=== PATIENT | female | born 1990 | race Caucasian/White ===

== ENCOUNTER 2018-01-15 21:11 | Emergency (ER) | payer OTHER ==
[~2018-01-15] VITALS: Ht 157.5 cm; Wt 55.3 kg
[~2018-01-15 21:11] MED LIST: FLV1 PO; LEVE1TAB57 PO; ZLF/50 PO
[2018-01-15 21:17] VITALS: TEMP 36.5; Ht 157.5 cm; Wt 55.3 kg
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
[2018-01-15] MEDS ORDERED: IBUPROFEN 600 MG TAB PO STA (21:40)
[2018-01-15] MEDS ORDERED: ACETAMINOPHEN 500 MG TAB PO STA (21:40)
[2018-01-15] MEDS ORDERED: COUGH DROP (SUGAR FREE) LOZ 24 LOZ/1 BOX LOZ STA (21:40)
[2018-01-15] MEDS ORDERED: BENZONATATE 100MG CAP PO ONE (21:45)
[2018-01-15] MEDS ORDERED: LEVE100021 PO (21:57)
[2018-01-15] MEDS ORDERED: MELO7.5T5 PO (21:57)
[2018-01-15 22:54] LABS: INFLUENZA B ANTIGEN Neg for Influ B (NEG)
[2018-01-15 23:18] VITALS: BP 118/71; PULSE 90; O2SAT 98
== END 2018-01-15 23:18 | disposition home or self-care (01) ==
LOC: C.EDB 21:12 → C.EDA 23:18
DX: J10.1 Influenza due to other identified influenza virus with other respiratory manifestations (principal); G40.909 Epilepsy, unspecified, not intractable, without status epilepticus; Z80.9 Family history of malignant neoplasm, unspecified; F17.210 Nicotine dependence, cigarettes, uncomplicated; Z79.899 Other long term (current) drug therapy; Z88.0 Allergy status to penicillin; Z88.8 Allergy status to other drugs, medicaments and biological substances